=== PATIENT | male | born 1950 | race Caucasian/White ===

== ENCOUNTER 2016-09-23 06:44 | Day surgery (SDC) | payer MEDICARE, BC ==
[~2016-09-23] VITALS: Ht 177.8 cm; Wt 83.4 kg
--- NOTE | ~2016-09-23 | OR ---
PATIENT'S NAME: NATHANAEL SWEENEY [facility] AGE: 65 Y [address] ROOM: [address] [place], [place] [address] LOCATION: [facility] ADMIT DATE: 09/23/2016 OR/Procedure Report DISCHARGE DATE: FAMILY PHYSICIAN: NATHANAEL RIOJAS MD ATTENDING PHYSICIAN: Milo Rothman SURGEON: Milo Rothman MD TACTICAL RESPONSE GROUP OFFICER: DATE OF PROCEDURE: 09/23/2016 PREOPERATIVE DIAGNOSIS: Benign prostatic hypertrophy with lower urinary tract symptoms. POSTOPERATIVE DIAGNOSIS: Benign prostatic hypertrophy with lower urinary tract symptoms. PROCEDURES PERFORMED: Cystoscopy and transurethral resection of the prostate. ANESTHESIA: General. COMPLICATIONS: None. INDICATION FOR PROCEDURE: The patient is a 65-year-old male with obstructive voiding symptoms secondary to prostatic enlargement. Cystoscopy revealed moderate prostatic enlargement with severe median lobe enlargement. DETAILS OF PROCEDURE: After informed consent was obtained, the patient was taken to the operating room. A general anesthetic was applied. He was placed in the dorsal lithotomy position. The groin area was prepped and draped in normal sterile fashion. Cystoscope was introduced into the urethra and bladder without difficulty. Again, the patient was noted to have very large median lobe and moderate lateral lobe enlargement. The loop was introduced and resection was begun at the bladder neck on the median lobe. I resected the median lobe down to crossing fibers to the level of the verumontanum. Then, the lateral lobes were resected. The patient had a significant amount of arterial bleeders, required extensive cauterization. The bladder was empty of chips and further resection was completed. I then switched over to the button loop and use this for further resection and also for good hemostasis. Remaining bladder chips were then irrigated out with the Jalil evacuator. The bladder was filled and a 24-Cambodian 3-way catheter was placed on traction. The patient tolerated this procedure well, was transferred to recovery room in good condition. PATIENT'S NAME: NATHANAEL SWEENEY [facility] AGE: 65 Y [address] ROOM: [id number] [place], [place] [address] LOCATION: [facility] ADMIT DATE: 09/23/2016 OR/Procedure Report DISCHARGE DATE: FAMILY PHYSICIAN: NATHANAEL RIOJAS MD ATTENDING PHYSICIAN: Milo Rothman MD LEW/tonyl /[id number] CC: Nathanael Riojas MD d: 09/23/16 1704 t: 09/24/16 2312, OPERATIVE SUMMARY
[~2016-09-23 06:44] MED LIST: ATIVAN 1 MG1 MG PO; CINNAMON500 MG PO; CORDARONE,PACE200 MG PO; COUMADIN ** IA5 MG PO; CPAP INH; FLOMAX0.4 MG PO; MECLIZINE HCL25 MG PO; PLAVIX75 MG PO; PRALUENT S75 MG/1 ML IM; PROTONIX40 MG PO
[2016-09-23 07:16] LABS: BASOPHIL # 0.1 K/uL (0.0-0.2); BASOPHIL % 1.1 %; EOSINOPHIL # 0.3 K/uL (0.0-0.5); EOSINOPHIL % 3.4 %; HEMATOCRIT 44.1 % (37.0-53.0); IMMATURE GRANULOCYTE % 0.4 %; LYMPHOCYTE # 1.9 K/uL (0.8-4.0); LYMPHOCYTE % 25.6 %; MCH 28.5 pg (27.0-34.0); MCHC 31.7 gm/dL (32.0-36.5); MCV 89.8 fl (83.0-98.0); MONOCYTE # 0.7 K/uL (0.0-1.0); MONOCYTE % 8.7 %; MPV 9.5 fl (9.4-12.4); NEUTROPHIL # (ANC) 4.6 K/uL (1.4-9.0); NEUTROPHIL % 60.8 %; NRBC % 0 /100WBC (0-0.00); PLATELET COUNT 169 K/uL (150-450); RBC 4.91 M/uL (3.50-5.50); RDW-CV 13.4 % (11.9-14.6); WBC 7.6 K/uL (4.0-11.0)
[2016-09-23 07:25] LABS: PROTIME 10.8 SECONDS (9.6-11.1); PTT 28 SECONDS (25-32)
[2016-09-23 07:33] LABS: ALBUMIN 3.8 gm/dL (3.5-5.0); ANION GAP 9.3 (10.0-19.0); CALCIUM 8.7 mg/dL (8.5-10.5); CREATININE 1.3 mg/dL (0.6-1.3); POTASSIUM 4.3 mMol/L (3.7-5.1); TOTAL BILIRUBIN 0.4 mg/dL (0.0-1.5); TOTAL PROTEIN 6.8 g/dL (6.0-8.4)
--- NOTE | 2016-09-23 15:55 | NUR ---
Is A/O.On bedrest.Catheter intact,has CBI rumming at slow to mod rate,Is drning lt pink drng,no clots noted.Has SL in Lt.wrist.Is on accuchecks.Occ.feeling of having to urinate & can't.Eating & drinking well.Probably home tomorrow.
--- NOTE | 2016-09-24 04:02 | NUR ---
POD#1 S/P TURP, CBI RUNNING SLOW W/LIGHT PINK TINGED OUTPUT, PATIENT RATES PAIN <2 AND ONLY RECEIVED TYLENOL LD@0015 THIS SHIFT PATIENT STATES "THE NARCOTICS MAKE ME FEEL WEIRD AND THEY DONT TAKE AWAY THE PAIN", NO C/O OF CONTINUOUS BLADDER SPASMS. VS WNL, RA, RIGHT WRIST SALINE LOCK, GOOD PO INTAKE/OUTPUT, BM THIS SHIFT REPORTED BY PATIENT, BS@2100 171 AND NO SS INSULIN REQUIRED. PATIENT WAS SLIGHTLY UNSTEADY WHEN UP TO BR AND USED WALKER W/SBA AND GAIT BELT FOR SUPPORT. SPOUSE IN ROOM AND SPENT THE NIGHT. DC HOME ON DISCHARGE.
--- NOTE | 2016-09-24 11:43 | NUR ---
PT AMBULATED IN HALLWAY X2 AT 0845, UP IN ROOM AND SITTING IN RECLINER. C/O DIZZINESS AND DIAPHORESIS, BLOOD PRESSURE 109/61, P-78 AT 0915, RECLINED IN RECLINER, BILATERAL PNEUMATIC LEG PUMPS PLACED ON PT. 0920 BP 132/81, P-65, 95% ON RA. PT STATES FEELS MUCH BETTER NOW.
[2016-09-24] MEDS ORDERED: LEVAQUIN 250 M250 MG PO (15:40)
[2016-09-24] MEDS ORDERED: TYLENOL WITH C1 EACH PO (15:42)
--- NOTE | 2016-09-24 15:50 | NUR ---
D: Orders received for the patient to be discharged to home with . I: Dismissal instructions were prepared and reviewed with patient and his virtually. The following information was discussed including Elva teaching sheets: Levofloxacin, Transurethral resection of the prostate TURP-home care, TURP, Discharge instructions for caring for your indwelling urinary catheter, emptying and cleaning your urinary catheter bag, Discharge instructions-caring for you leg bag, tylenol with codeine, and preventing DVT. Reviewed follow up appointments with Dr. Mckenzie to remove his bobo catheter on and follow up in [address] Rothman. Provided new prescriptions to be filled at there pharmacy of choice after discharge. R: The patient and his both verbalized understanding of the dismissal education at the time of teaching with no further questions. P: The above information was shared with the primary nurse, charge nurse and nurses aide that the dismissal education was completed. The patient is ready for discharge to the front door by nursing staff. The patient ambulated with the assisted living nursing director to the front door and went home with his .
== END 2016-09-24 16:15 | disposition disaster alternative care site (69) ==
LOC: GSDC 06:44 → GMSU 06:44 → GPOC 07:00 → GSDC 09-24 16:15
PROVIDERS: Urology
PROC: 0VT08ZZ Resection of Prostate, Via Natural or Artificial Opening Endoscopic (ICD-10-PCS; principal; 2016-09-23)
DX: N40.1 Benign prostatic hyperplasia with lower urinary tract symptoms (principal); N13.8 Other obstructive and reflux uropathy; I48.91 Unspecified atrial fibrillation; I25.10 Atherosclerotic heart disease of native coronary artery without angina pectoris; E78.5 Hyperlipidemia, unspecified; E11.9 Type 2 diabetes mellitus without complications; G47.33 Obstructive sleep apnea (adult) (pediatric); I95.9 Hypotension, unspecified; Z87.09 Personal history of other diseases of the respiratory system; Z87.891 Personal history of nicotine dependence; Z80.0 Family history of malignant neoplasm of digestive organs; Z88.1 Allergy status to other antibiotic agents; Z88.8 Allergy status to other drugs, medicaments and biological substances; Z79.899 Other long term (current) drug therapy
CPT/HCPCS: J1956; J2001; J7030